=== PATIENT | female | born 1965 | race Caucasian/White ===

== ENCOUNTER 2019-11-20 14:48 | Inpatient (IN) | payer BC ==
[~2019-11-20] VITALS: Ht 154.9 cm; Wt 55.8 kg
[~2019-11-20 14:48] MED LIST: CEL20 PO
[2019-11-20 14:50] VITALS: Ht 154.9 cm; Wt 55.8 kg
[2019-11-20 16:05] LABS: BASOPHIL % 0.7 % (0-2)
[2019-11-20 16:08] LABS: PLATELET COUNT 103 x10^3mcL (130-400); RED CELL DISTRIBUTION WIDTH 15.1 % (11.5-14.5)
[2019-11-20 16:27] LABS: CALCIUM 8.9 mg/dL (8.5-10.1); CARBON DIOXIDE 30.3 mmol/L (21-32); CHLORIDE SERUM 100 mmol/L (98-107); GFR1 > 60 mL/min; GLUCOSE SERUM 157 mg/dL (74-106); POTASSIUM SERUM 3.2 mmol/L (3.5-5.1); SODIUM SERUM 137 mmol/L (136-145)
[2019-11-20 16:32] LABS: ALBUMIN 3.4 g/dL (3.4-5.0); ALKALINE PHOSPHATASE 109 U/L (46-116); ALT/SGPT 53 U/L (14-59); AST/SGOT 46 U/L (15-37); BILIRUBIN TOTAL 0.45 mg/dL (0.20-1.00); C REACTIVE PROTEIN 1.3 mg/dL (<=0.9); LACTIC DEHYDROGENASE (LDH) 239 U/L (100-190); TOTAL PROTEIN, SERUM 6.3 g/dL (6.4-8.2)
[2019-11-20 17:50] LABS: CHOLESTEROL/HDL RATIO 3.3; MAGNESIUM 1.9 mg/dL (1.8-2.4)
[2019-11-20 18:28] VITALS: BP 90/53
[2019-11-20] MEDS ORDERED: CELLCEPT500 MG PO (21:02)
[2019-11-20] MEDS ORDERED: ZOVIRAX400 MG PO (21:03)
[2019-11-20 21:25] VITALS: BP 93/46
[2019-11-20 21:45] VITALS: BP 98/60
[2019-11-20 22:39] LABS: UA SPECIFIC GRAVITY 1.015 (1.005-1.035); microscopic required? YES; urine erythrocyte 1+ (NEGATIVE)
[2019-11-20 23:07] LABS: AMPHETAMINE QUAL UR NONE DETECTED (See below)
[2019-11-21 06:27] VITALS: BP 79/46
[2019-11-21 08:26] LABS: CALCIUM 7.8 mg/dL (8.5-10.1); CARBON DIOXIDE 30.9 mmol/L (21-32); CHLORIDE SERUM 104 mmol/L (98-107); CREATININE SERUM 0.8 mg/dL (0.6-1.0); GFR1 > 60 mL/min; GLUCOSE SERUM 109 mg/dL (74-106); POTASSIUM SERUM 4.1 mmol/L (3.5-5.1); SODIUM SERUM 136 mmol/L (136-145)
[2019-11-21 08:46] VITALS: BP 89/39
[2019-11-21 08:51] LABS: BASOPHIL % 0.2 % (0-2); PLATELET COUNT 147 x10^3mcL (130-400)
[2019-11-21 09:20] LABS: RED CELL DISTRIBUTION WIDTH 15.6 % (11.5-14.5)
[2019-11-21 09:26] VITALS: BP 75/42
== END 2019-11-21 12:21 | disposition left against medical advice (07) | DRG 313 ==
LOC: ED 14:48 → DU 17:07
PROVIDERS: Emergency Medicine; ADMIT Internal Medicine; ATTEND Internal Medicine
DX: R07.9 Chest pain, unspecified (principal); Z94.81 Bone marrow transplant status; I25.10 Atherosclerotic heart disease of native coronary artery without angina pectoris; R06.00 Dyspnea, unspecified; Z53.29 Procedure and treatment not carried out because of patient's decision for other reasons; I95.9 Hypotension, unspecified; Z79.82 Long term (current) use of aspirin; Z79.899 Other long term (current) drug therapy
CPT/HCPCS: 83880; 87046; 87046-59; G0378; J1885; J3535; J7030; J7050; J7517; Q0092; U0003-CS